=== PATIENT | female | born 1960 | race Two or more races ===

== ENCOUNTER → 2016-03-19 | Day surgery (SDC) | payer MEDICAID ==
[~2016-03-19] MED LIST: LIDOCAINE 1% 5 ML SDV ID PRN; LIDOCAINE 1% 5 ML SDV ONE; LIDOCAINE 2% 5 ML SDV ONE; LR 1,000 ML IV ONE; MIDAZOLAM 2 MG/2 ML VIAL ONE; PROPOFOL 200 MG/20 ML VIAL ONE
--- NOTE | 2016-03-19 10:09 | GPN ---
[f rep st] PROCEDURE NOTE PREPROCEDURE DIAGNOSIS: Screening colonoscopy. POSTPROCEDURE DIAGNOSIS: Screening colonoscopy, status post removal of a 2-mm descending colon polyp . PROCEDURE: Colonoscopy with biopsy. MEDICATIONS: Monitored anesthesia care. INDICATIONS: The patient is a 55-year-old female presenting for screening colonoscopy. The risks an d benefits of the procedure were discussed with the patient and consent obtained. The risks include, but not limited to, bleeding, perforation, risks related to sedation. The patient is ASA class 2. DESCRIPTION OF PROCEDURE: The pediatric colonoscope was advanced into the terminal ileum which appea red normal. The appendiceal orifice, the cecum, IC valve, ascending colon, hepatic flexure, transver se colon, splenic flexure appeared normal. There was a 2-mm polyp in the descending colon, which was removed using cold biopsy forceps and sent to pathology. The sigmoid colon and rectum were normal i ncluding retroflexed views in the rectum. IMPRESSION: Small descending colon polyp, removed using cold biopsy forceps and sent to pathology. RECOMMENDATIONS: 1. Discharge to home with escort. 2. Advance diet as tolerated. 3. Continue present medications. 4. Follow up pathology results. Results available within 10 days. 5. Repeat colonoscopy based on pathology results. If the polyp is found to be adenomatous, I recomm end repeating colonoscopy in 5 years. Otherwise repeat colonoscopy in 10 years. Thank you very much for allowing me to participate in the care of your patient. /[id number]/MODL
== END | disposition home or self-care (01) ==
LOC: FSGY 08:09
PROVIDERS: ATTEND Internal Medicine Gastroenterology
PROC: 0DBM8ZX Excision of Descending Colon, Via Natural or Artificial Opening Endoscopic, Diagnostic (ICD-10-PCS; principal; 2016-03-19 09:15)
DX: Z12.11 Encounter for screening for malignant neoplasm of colon (principal); D12.4 Benign neoplasm of descending colon
CPT/HCPCS: J2250; J2704

== ENCOUNTER → 2017-01-09 | Outpatient (CLI) | payer MEDICAID | LOC: FIMAGING 16:14 | PROVIDERS: ATTEND Internal Medicine | DX: Z12.31 Encounter for screening mammogram for malignant neoplasm of breast (principal); Z80.3 Family history of malignant neoplasm of breast | CPT/HCPCS: G0202 ==

== ENCOUNTER → 2018-02-20 | Outpatient (CLI) | payer MEDICAID | LOC: BMCIMAGING 15:19 | PROVIDERS: ATTEND Internal Medicine | DX: Z12.31 Encounter for screening mammogram for malignant neoplasm of breast (principal); Z80.3 Family history of malignant neoplasm of breast ==